=== PATIENT | male | born 1960 | race Caucasian/White ===

== ENCOUNTER 2018-08-15 07:00 | Outpatient (RCR) | payer BC, SELFPAY ==
--- NOTE | 2018-06-07 12:53 | HP.PTEVAL ---
Patient's Visit Information NARINDER ALVA is a 57 year old M referred to Physical Therapy by NARINDER HOLLY with a diagnosis of Left RTC repair. Date of Evaluation: 06/07/18 Physical Therapist: Susannah Philip DPT - Visit Plan Frequency: 3x /Week Duration: 4 Weeks Plan: Focus on ROM- manual and exercise. - Subjective Findings: Left RTC Repair Mar 21, 2018- lives in [place] in the summer- but lives in [place] and [place] as well- traveler. Soreness and stiffness following exercises. No pain if he isn't moving- No N/T in the no finger dexterity issues. No LEAL, Blurred vision or dizziness. Right hand dominate. Has been doing home exercise but he was told hes stiff and he needs to get more motion. 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 Worst: 2/10 Best: 0/10 Agg: movement and behind the back. Sleep: not disturbed- bed. Is in [place] for awhile until he is happy with his dads progress. - Objective Posture: FH, RS. Observation: good arm swing with ambulation. Palpation: tender along bicipital groove. ROM: AROM: Flexion: 110 degrees, Abd: 100 degrees IR: pocket ER: 20 degrees. PROM: Flexion: 160 degrees, Abd: 140 degrees, IR: 40 degrees, ER: 40 degrees. Elbow/Wrist/Hand: WNL. Strength: isometric: 4+/5 throughout- Scap: fair - Goals Goal 1:: Patient will be I with HEP and progression Goal Time Frame: 4-6 Weeks Goal 2:: Patient will demo full AROM of the left shoulder Goal Time Frame: 4-6 Weeks Goal 3:: Patient will demo 4+/5 strength in full ROM of shoulder Goal Time Frame: 4-6 Weeks Goal 4:: Patient will maintain proper posture t/o to demo increased scap s/s. Goal Time Frame: 4-6 Weeks - Rehabilitation Potential Physical Therapy Diagnosis: Patient presents with hypomobility- he has decreased ROM, strength and muscular endurance s/p RTC repair Mar 21, 2018 leading to abnormal posture and decreased ability to perform ADL's. Rehabilitation Potential: Good - Anticipated Interventions Patient/Client Instruction: Educate patient on: Benefits of Fitness Program Therapeutic Exercise to Include: Strength training, Endurance training, Body mechanics, Postural training, Flexibilty training, Scapular Strength/Stabilization For the Purpose of:: To improve muscle performance and motor function, To improve ability to perform ADL's Manual Therapy Techniques to Include: Passive ROM, Soft tissue mobilization For the Purpose of:: To improve muscle performance and motor function Cryotherapy (ice pack, ice massage): Yes Thermo therapy (hot pack): Yes Thank you for the opportunity to evaluate your patient. For Medicare and Medicare HMO plans, please review the plan of care and approve it. It will need to be FAXED BACK to us at [phone] for Medicare purposes. For Medicare only, by signing this I certify the plan of care. Please let me know if there are questions or concerns regarding this plan of care. Physician Signature: Date:
--- NOTE | 2018-08-13 09:54 | HP.PT.NRP ---
HP - Discharge Summary (1) - Patient Information NARINDER VOSS was seen in my office for initial evaluation on 06/07/18. The following Plan of Care was established for this patient: Initial Frequency: 3x /Week Initial Duration: 4 Weeks - Anticipated Interventions Patient/Client Instruction: Educate patient on: Benefits of Fitness Program Therapeutic Exercise to Include: Strength training, Endurance training, Body mechanics, Postural training, Flexibilty training, Scapular Strength/Stabilization For the Purpose of:: To improve muscle performance and motor function, To improve ability to perform ADL's Manual Therapy Techniques to Include: Passive ROM, Soft tissue mobilization For the Purpose of:: To improve muscle performance and motor function Cryotherapy (ice pack, ice massage): Yes Thermo therapy (hot pack): Yes This patient was last seen in our office . Pertinent comments regarding their Physical therapy will appear below: Patient has not attended therapy in over 30 days- appropriate for d/c and return to MD for further evaluation. At this point I will be discontinuing this patient from physical therapy. I would be happy to see this patient again in the future if found appropriate by the physician. Thank you! SHANNAN PedrozaT
== END 2018-08-15 08:21 | disposition home or self-care (01) ==
LOC: PT 07:00
DX: Z98.890 Other specified postprocedural states (principal)
CPT/HCPCS: 97014; 97110; 97140; 97162; 97530; G0283

== ENCOUNTER → 2019-10-13 12:14 | Outpatient (CLI) | payer BC, SELFPAY ==
[2019-10-13 12:29] LABS: Bacteria 0 SEEN /hpf (None Seen); Mucous, Urine 0 SEEN /hpf (<or=2+); Squamous Epithelial Cells - UA 0 SEEN /hpf (0-5)
[2019-10-13 15:12] LABS: Color, Urine Straw (Yellow); Glucose, Dipstick Normal (Normal); Ketone-Dipstick Negative (Negative); Leukocyte Esterase-Dipstick Negative /ul (Negative); Nitrite-Dipstick Negative (Negative); Occult Blood-Urine Negative /ul (Negative); Protein-Dipstick Negative (Negative); Specific Gravity, Urine 1.005 (1.002-1.030); Urine Bilirubin Dipstick Negative (Negative); Urine Clarity Clear (Clear); Urine Urobilinogen Normal (Normal)
[2019-10-13 15:30] LABS: Red Blood Cells-Urine 0-5 SEEN /hpf (0-5)
[2019-10-13 15:33] LABS: White Blood Cells 0-5 SEEN /hpf (0-5)
[2019-10-13 16:40] LABS: Chlamydia Trachomatis by PCR Negative (Negative); Neisserai gonorrhoeae by PCR Negative (Negative); Probe Check PASS; Sample Adequacy Control PASS; Specimen Processing Control PASS
== END ==
PROVIDERS: Referring Provider Family Medicine; Visit Provider Family Medicine
DX: Z20.9 Contact with and (suspected) exposure to unspecified communicable disease (principal)
CPT/HCPCS: 81001; 87491; 87591

== ENCOUNTER → 2020-08-10 08:09 | Outpatient (CLI) | payer BC, SELFPAY ==
[2020-08-10 08:12] LABS: Lyme Ab Screen Interpretation REF LAB
[2020-08-10 10:17] LABS: Absolute Neutrophil Count 1.9 X10^3/uL (2.0-7.7); Basophil# 0.03 X10^3/uL; Basophil% 0.6 % (0-1); Eosinophil# 0.26 X10^3/uL; Eosinophils% 5.6 % (0-5); Hematocrit 43.3 % (40-54); Hemoglobin 14.3 g/dL (13.0-16.5); Mean Corpuscular Hgb 29.5 pg (27.0-32.0); Mean Corpuscular Volume 89.5 fL (80-94); Mean Platelet Vol. 10.6 fl (6.2-12.0); Monocyte# 0.48 X10^3/uL; Monocyte% 10.3 % (0-10); NRBC Flagged by Analyzer 0 % (0-5); Neutrophil # 1.87 X10^3/uL (2.7-7.7); Neutrophil % 40.3 % (47-70); Platelet Count 247 K/mm3 (150-450); RBC Distribution Width SD 38.9 fl (35.1-43.9); Red Blood Count 4.84 M/mm3 (4.6-6.2); White Blood Count 4.7 K/mm3 (4.4-11.0)
[2020-08-11 16:12] LABS: Lyme Scn Total Ab w/Rflx <0.91 ISR (0.00-0.90)
== END ==
PROVIDERS: PCP Family Medicine; Referring Provider Family Medicine; Visit Provider Family Medicine
DX: R59.1 Generalized enlarged lymph nodes (principal); W57.XXXA Bitten or stung by nonvenomous insect and other nonvenomous arthropods, initial encounter
CPT/HCPCS: 36415; 85025; 86618

== ENCOUNTER → 2020-11-12 12:11 | Outpatient (CLI) | payer BC, SELFPAY ==
[2020-11-12 16:48] LABS: Chlamydia Trachomatis by PCR Negative (Negative); Neisserai gonorrhoeae by PCR Negative (Negative); Probe Check PASS; Sample Adequacy Control PASS; Specimen Processing Control PASS
[2020-11-16 10:27] LABS: HIV - WCH Non-Reactive (Nonreactive); Hepatitis C Antibody Non-Reactive (Nonreactive); Syphilis Antibodies Non-reactive
[2020-11-17 04:08] LABS: HSV 1 By PCR Negative (Negative)
[2020-11-17 10:22] LABS: HSV 2 By PCR Negative (Negative)
== END ==
PROVIDERS: PCP Family Medicine; Referring Provider Family Medicine; Visit Provider Family Medicine
DX: Z72.51 High risk heterosexual behavior (principal)
CPT/HCPCS: 36415; 86703; 86780; 86803; 87491; 87529; 87591